=== PATIENT | male | born 1955 | race Caucasian/White ===

== ENCOUNTER 2018-05-16 19:46 | Emergency (ER) | payer OTHER ==
[2018-05-16] MEDS ORDERED: Diphtheria,Pertussis(Acell),Tetanus Vaccine 0.5 ML SDV inactive IM ONE (20:25)
[2018-05-16] MEDS ORDERED: Lidocaine 1% with EPINEPHrine 1:100,000 20 ML MDV ONE (20:30)
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
== END 2018-05-16 20:53 | disposition home or self-care (01) ==
LOC: LB.ED 19:46
DX: S01.81XA Laceration without foreign body of other part of head, initial encounter (principal); W22.8XXA Striking against or struck by other objects, initial encounter; Z23 Encounter for immunization
CPT/HCPCS: 12014; 90471; 90715; 99283-25